=== PATIENT | male | born 1965 | race Caucasian/White ===

== ENCOUNTER → 2023-04-21 12:35 | Outpatient (BNVA) | payer MEDICAID, SELFPAY | PROVIDERS: Referring Provider Family Medicine; Visit Provider Internal Medicine | DX: R07.9 Chest pain, unspecified (principal) | CPT/HCPCS: 93005 ==

== ENCOUNTER 2023-05-24 11:20 | Observation (INO) | payer MEDICAID, SELFPAY ==
[2023-05-24] VITALS (10 sets, daily range): BP systolic 123–155; BP diastolic 65–91; PULSE 57–76; RESP 15–21; O2SAT 92–96; BMI 32.6
--- NOTE | 2023-05-24 06:00 | XACV_ITS ---
Exam Room: 2 Ht: 175 cm Wt: 100 kg BSA: 2.24 m2 Gender: Male : 1965 Any Known Allergies: No known allergies Exam Priority: Routine Procedure(s): Procedure Description: Diagnostic procedure Procedure Description: Left Heart Catheterization Procedure Description: Left ventriculography Procedure Description: Venous Graft Catheterization Procedure Description: SAEED Graft Catheterization Procedure Description: Coronary Angiography Diagnostic Cath Status: Elective Diagnostic Findings * Small sized raum artery is free of significant disease. * Left Anterior Descending has no disease. Competetive flow seen from SAEED. * Right Coronary Artery has patent prior mid vessel stent. No significant disease seen. * Bypass grafts: SAEED to LAD is patent. Backfills a large sized diagonal artery. SVG to RCA is occluded. SVG to high OM branch is patent.. * Circumflex has no disease. * Left Main: severe 90% stenosis, SHAE: 3 flow. * Coronary angiography shows right dominance. Conclusions 1. Severe [place] CAD. Patent SAEED to LAD, SVG to OM and patent prior [place] RCA stent. 2. Patient has prior CABG. 3. Mild left ventricular systolic dysfunction. Ejection fraction of 45%. Recommendations * Aggressive medical therapy. Will need uptitration of antianginal medications. * Follow up visit in 4 weeks. Interventional RX Recommendation: medical therapy and/or counseling Diagnostic RX Recommendation: medical therapy and/or counseling Ventriculography Ejection Fraction: 45.0 % Left Ventriculography Findings: * Aneurysmal inferior wall noted. Pressures Phase:Rest AO : 129 / 68 ( 93 ) @ 10:38:00 AM 138 / 69 ( 95 ) @ 10:46:00 AM 148 / 68 ( 99 ) @ 10:57:00 AM 144 / 66 ( 97 ) @ 10:57:00 AM LV : 132 / -4 / 11 @ 10:55:00 AM 138 / -3 / 16 @ 10:56:00 AM 137 / -1 / 17 @ 10:57:00 AM Valves Phase:DefaultPhase AV : 0.0 @ 11:06:42 AM 0.0 @ 11:06:42 AM AV Mean Gradient: 0.0 @ 11:06:42 AM 0.0 @ 11:06:42 AM Clinical Evaluation EBL: 5mL-10mL Procedural Details Procedure Consent Obtained. Pre-Procedure Time Out. Identified patient by full name and date of as verbalized by the patient/guarantor. Does the consent match the physician's order: Yes. Accurate & Complete Informed Consent: Yes. Inpatient/Outpatient History & Physical on Chart: Yes. If H&P is completed, is and addenduem needed: No; If yes, is the addendum complete: N/A. Visualize and Verify Site with Patient/Guarantor: N/A. Relevant Radiology Images available: N/A. The risks, benefits, and alternatives of sedation and/or procedure were discussed by physician. The patient agrees to continue. Procedure started. [facility] Clinical Fraility Score: 3: Managing Well. Shorthand Teacher Indications: Worsening Angina. Chest Pain Symptom Assessment: Typical Angina Symptoms. Correct patient, site and procedure confirmed by cath team. Current diagnosis: Chest Pain. PERRLA. Strong, equal hand bellows assembler bilaterally. Lungs clear x 5 lobes. IV Site on Arrival: 20 gauge in the left anticubital. IV Fluids: 0.9% NaCl at 75ml/hr. 0 mL infused prior to cath lab nurse. Pre Procedural Pulses: bilateral dorsalis pedis was 3+. Pre Procedural Pulses: right posterior tibial was Doppled. Pre Procedural Pulses: left posterior tibial was 1+. Pre Procedural Pulses: right radial was 2+. Oxygen started at 2liters/min via nasal canula. bilateral groins was prepped with chloroprep then draped in the usual sterile fashion. Physician notified. Baseline sample Acquired. HR: 54 BPM. Physician arrived. Physician scrubbed in. Immediate Pre-Procedure Time Out. Correct Patient: Yes; Correct Procedure: Yes; Correct Site: Yes; Correct Patient Position: Yes; Correct Supplies: Yes; Dried Flammable Prep: Yes; Blood Products Available: No;. Lidocaine 1% infiltrated to the right groin. An attempt to gain access to the right femoral artery was unsuccessful. Manual pressure was held as needed to stop the bleeding. Arterial access obtained with micropuncture set. A 6 equatorial guinean JL4 catheter in over wire. Catheter removed over the standard wire. A 5 equatorial guinean JL3.5 catheter in over wire. Multiple views taken of left coronary artery. Catheter removed over the standard wire. A 6 equatorial guinean JR4 catheter in over wire. Multiple views taken of right coronary artery. SVG's to Circumflex visualized and patent. SVG to RCA occluded. SAEED to LAD visualized. Catheter removed over the standard wire. A 6 equatorial guinean Angled Pig catheter in over wire. EDP Sample taken: LV 132/-5,11; HR: 66 BPM; SpO2: 98%. LV gram performed in SHARP @ 10 mL/second for a total of 30 mL. EDP Sample taken: LV 138/-4,16; HR: 67 BPM; SpO2: 98%. Pullback taken: LV 137/-2,17; AO 148/68(99); Mean: 0mmHg, Peak to Peak: 0mmHg, SEP: 5sec/min; HR: 65 BPM; SpO2: 97%. Catheter removed over the standard wire. A Right femoral angiogram was performed to determine safe placement of closure device. A Angio-Seal VIP ([place]) was successful obtaining hemostatsis at the Right Femoral artery insertion site. LOT # [id number] EXP 10-27-2023. Physician scrubbed out. Post Procedure: Pulses reassessed and unchanged. PERRLA. Strong, equal hand bellows assembler bilaterally. No VTE prophylaxis required. Medication's Wasted: Heparin = 1000 units. Total IV fluids: 50 mL. Post-op diagnosis: Patent SAEED to LAD, Patent SVG to Circumflex. Occluded SVG to RCA graft, patent RCA stent. Complications: None. Estimated blood loss: 5mL-10mL. Responsiveness - Normal response to verbal stimuli; alert and oriented, PERRLA. Airway - Unaffected, no intervention required; spontaneous ventilation. Circulation: W/N/L, pulses unchanged. Nausea/Vomiting: No. Procedure completed. Patient transferred by bed to 1st floor. Vital chart was stopped. Access Site Site: Right Femoral artery Sheath Size: 6 Fr Hemostasis Method: Angio-Seal VIP ([place]) Hemostasis Success: Successful Procedure Medications Start: 10:29 AM Stop: 10:29 AM Medication: Versed Amount: 1 mg Route: I.V. Start: 10:30 AM Stop: 10:30 AM Medication: Fentanyl Amount: 50 mcg Route: I.V. Start: 10:32 AM Stop: 10:32 AM Medication: Versed Amount: 1 mg Route: I.V. Start: 10:32 AM Stop: 10:32 AM Medication: Fentanyl Amount: 50 mcg Route: I.V. I, the attending physician, have reviewed and verified all procedure medications. Yes, all medications given per verbal order History/Risk Factors Hypertension: Yes Dyslipidemia: Yes Peripheral Arterial Disease (PAD): No Myocardial Infarction (MD): No Obesity: No Renal Disease: No Prior Interventions PCI: Yes CABG: Yes Valve Surgery: No Report Signatures Finalized by Emre Lee MD on 05/24/2023 01:08 PM
[2023-05-24] MEDS: diphenhydrAMINE 50 mg Capsule PO (07:55)
[2023-05-24] MEDS: aspirin 325 mg Tablet PO (07:55)
[2023-05-24 08:19] LABS: Glucose Point of Care 99 mg/dL (70-110)
[2023-05-24 08:22] LABS: Basophils # 0.1 10^3/uL (0.0-0.1); Basophils % 1.3 %; Eosinophils # 0.9 10^3/uL (0.0-0.8); Hematocrit 47.1 % (37-53); Lymphocytes # 1.9 10^3/uL (0.8-4.8); Lymphocytes % 20.5 %; Mean Corpuscular HGB Conc 32.1 g/dL (30-55); Mean Corpuscular Hemoglobin 26.8 pg (27-33); Mean Corpuscular Volume 83.7 fl (82-101); Mean Platelet Volume 9.9 fL (7.4-10.4); Monocytes # 0.6 10^3/uL (0.2-0.9); Monocytes % 6.5 %; Neutrophils # 5.78 10^3/uL (1.8-7.7); Neutrophils % 61.2 %; Nucleated Red Blood Cells % 0 %; Platelet Count 328 10^3/cmm (157-399); Red Blood Count 5.63 10^6/uL (3.85-5.65); Red Cell Distribution Width 13.9 % (12.1-15.1); White Blood Count 9.43 10^3/uL (3.29-11.43)
[2023-05-24 08:34] LABS: Anion Gap 13.6 (5-19); Blood Urea Nitrogen 15 mg/dL (6-20); Calcium 9.4 mg/dL (8.5-10.5); Carbon Dioxide 28 mmol/L (22-29); Chloride 103 mmol/L (98-107); Glucose 125 mg/dL (65-115); Osmolality Calculated 292 mOsm/kg (285-295); Potassium 4.6 mmol/L (3.5-5.1); Sodium 140 mmol/L (136-145)
--- NOTE | 2023-05-24 10:27 | W.PM.OPSFHP ---
Same Day Surgery H&P Indication for Procedure/HPI DATE OF PROCEDURE: May 24, 2023 CHIEF COMPLAINT/INDICATIONFOR SURGICAL PROCEDURE: Worsening angina PREOP DIAGNOSIS: Worsening angina PLANNED PROCEDURE: Operation Date: 05/24/23 07:00 Proposed Procedures p [facility] 88536,I20.0(Left) - Emre Lee M.D Possible percutaneous coronary intervention 58-year-old man with past medical history of CABG and PCI has been having worsening anginal symptoms for 1 to 2 months. He has been taking multiple nitros. Plan for coronary angiogram with possible percutaneous coronary intervention. Medications/Allergies* Home Medications Medication Instructions Recorded Confirmed Type albuterol sulfate 90 mcg/actuation 2 inh inhalation Q4H PRN SOB 04/21/23 05/23/23 History breath activated powder inhaler aspirin 81 mg tablet,delayed 81 mg PO DAILY 04/21/23 05/23/23 History release (Adult Low Dose Aspirin) atorvastatin 80 mg tablet 80 mg PO DAILY 04/21/23 05/23/23 History cholecalciferol (vitamin D3) 125 125 mcg PO DAILY 04/21/23 05/23/23 History mcg (5,000 unit) capsule doxepin 10 mg capsule 10 mg PO DAILY PRN itching 04/21/23 05/23/23 History dulaglutide 4.5 mg/0.5 mL mg SUBCUT 04/21/23 04/21/23 History subcutaneous pen injector (Trulicity) epinephrine 0.3 mg/0.3 mL 0.3 mg IM Q4H PRN Allergic Reaction 04/21/23 05/23/23 History injection, auto-injector ezetimibe 10 mg tablet (Zetia) 10 mg PO DAILY 04/21/23 05/23/23 History fenofibrate 160 mg tablet 160 mg PO DAILY 04/21/23 05/23/23 History fluticasone 250 mcg-salmeterol 50 1 inh inhalation BID 04/21/23 04/21/23 History mcg/dose blistr powdr for inhalation (Advair Diskus) fluticasone propionate 50 2 spray intranasal DAILY 04/21/23 05/23/23 History mcg/actuation nasal spray,suspension gabapentin 300 mg capsule 300 mg PO TID 04/21/23 05/23/23 History glimepiride 4 mg tablet 4 mg PO BID 04/21/23 05/23/23 History hydrocodone 5 mg-acetaminophen 325 1 tab PO Q8H PRN Pain 04/21/23 05/23/23 History mg tablet insulin NPH-regular 70-30 U-100 20 unit SUBCUT QAM 04/21/23 05/23/23 History insulin 100 unit/mL subcutaneous pen isosorbide mononitrate 60 mg 60 mg PO DAILY 04/21/23 05/23/23 History tablet,extended release 24 hr metformin 1,000 mg tablet 2,000 mg PO BID 04/21/23 05/23/23 History metoprolol succinate 25 mg 25 mg PO DAILY 04/21/23 05/23/23 History tablet,extended release 24 hr nitroglycerin 0.4 mg sublingual 0.4 mg sublingual Q5M PRN Chest 04/21/23 05/23/23 History tablet Pain pantoprazole 40 mg tablet,delayed 40 mg PO DAILY 04/21/23 05/23/23 History release zolpidem 10 mg tablet (Ambien) 10 mg PO BEDTIME 04/21/23 05/23/23 History Allergies/Adverse Reactions Allergy/AdvReac Type Severity Reaction Status Date / Time No Known Allergies Allergy Unverified 05/23/23 09:39 Current Medications: Generic Name Dose Route Start Last Admin Trade Name Freq PRN Reason Stop Dose Admin Sodium Chloride 1,000 mls @ 50 mls/hr 05/24/23 06:00 05/24/23 08:26 Sodium Chloride 0.9% IV 05/25/23 01:59 Not Given .Q20H ONE Pertinent History/Comorbid Conditions* Medical History (Updated 04/21/23 @ 13:17 by Emre Lee M.D) HTN (hypertension) Type 2 diabetes mellitus Hyperlipemia Valvular heart disease CAD (coronary artery disease) Pertinent Exam Findings alert, oriented x 3, clear to auscultation bilaterally and regular rate & rhythm Conscious Sedation Assessment PATIENT ASSESSED PRIOR TO SEDATION, WITH NO CHANGE NOTED: Yes AIRWAY EVAL/ANESTHESIA PLAN: normal airway, ASA III, Local Anesthesia, Risks, benefits & alternatives of sedation and/or procedure discussed and Patient agrees to continue as planned ADDITIONAL INFORMATION: Moderate sedation Recommendations Surgery/Procedure today (Left heart cath with possible percutaneous coronary intervention) Coding Level of Care Code Acute Code for Chg Fwd
--- NOTE | 2023-05-24 11:15 | SUR.PHASEII ---
POST CATH NOTE Received patient from home performance laborer status post cardiac catheterization via the right femoral appoach. Verbal post cath instructions went over with the patient which he understood well. Right groin access site was closed in home performance laborer with angioseal. Site is free of hematoma formation at this time. Vitals and assessments per flowsheets. Call light in reach. Informed to call for needs.
--- NOTE | 2023-05-24 12:06 | SUR.PHASEII ---
Post cath fluids set at 100 ml/hr of 0.9% NS
--- NOTE | 2023-05-24 15:47 | SUR.PREOP ---
Patient up to bedside. Femoral access site is free of hematoma formation. Will continue to monitor.
== END 2023-05-24 16:33 | disposition home or self-care (01) ==
LOC: CSU 11:43
PROVIDERS: Admitting Provider Internal Medicine; Visit Provider Internal Medicine
DX: I25.110 Atherosclerotic heart disease of native coronary artery with unstable angina pectoris (principal); Z95.1 Presence of aortocoronary bypass graft; I10 Essential (primary) hypertension; E78.5 Hyperlipidemia, unspecified; Z79.82 Long term (current) use of aspirin; E11.9 Type 2 diabetes mellitus without complications
CPT/HCPCS: 36415; 36416; 80048; 82962; 85025; 93459; 96365; 99152; 99153; C1760; C1769; C1887; C1894; G0378; J1644; J2250; J3010; J7030; Q0163; Q9967

== ENCOUNTER → 2023-05-31 09:39 | Outpatient (BNVA) | payer MEDICAID, SELFPAY | PROVIDERS: Visit Provider Nurse Practitioner Family | DX: I25.10 Atherosclerotic heart disease of native coronary artery without angina pectoris (principal); Z09 Encounter for follow-up examination after completed treatment for conditions other than malignant neoplasm; I25.112 Atherosclerotic heart disease of native coronary artery with refractory angina pectoris; I10 Essential (primary) hypertension | CPT/HCPCS: 36415; 80048 ==